=== PATIENT | male | born 1945 | race Caucasian/White ===

== ENCOUNTER → 2023-04-11 09:49 | Outpatient (REF) | payer MEDICARE, OTHER, SELFPAY | LOC: RAD 09:49 | PROVIDERS: ATTENDING PHYSICIAN Internal Medicine Gastroenterology; FAMILY PHYSICIAN Emergency Medicine | DX: R13.19 Other dysphagia (principal) | CPT/HCPCS: 74230; 92611 ==

== ENCOUNTER 2023-05-09 06:14 | Day surgery (SDC) | payer MEDICARE, OTHER, SELFPAY ==
[2023-05-09 07:23] VITALS: BP 146/69
[2023-05-09 08:55] VITALS: BP 116/57
[2023-05-09 09:00] VITALS: BP 124/62
[2023-05-09 09:10] VITALS: BP 134/62
== END 2023-05-09 09:30 | disposition home or self-care (01) ==
LOC: SDS 06:14
PROVIDERS: ATTENDING PHYSICIAN Internal Medicine Gastroenterology
DX: D12.2 Benign neoplasm of ascending colon (principal); K57.30 Diverticulosis of large intestine without perforation or abscess without bleeding; R19.7 Diarrhea, unspecified; K29.50 Unspecified chronic gastritis without bleeding; K31.89 Other diseases of stomach and duodenum; K20.90 Esophagitis, unspecified without bleeding; T18.128A Food in esophagus causing other injury, initial encounter; W44.F3XA Food entering into or through a natural orifice, initial encounter; R13.10 Dysphagia, unspecified; Z85.79 Personal history of other malignant neoplasms of lymphoid, hematopoietic and related tissues
CPT/HCPCS: 45380; 43239; 88305

== ENCOUNTER 2024-06-15 06:29 | Day surgery (SDC) | payer MEDICARE, OTHER, SELFPAY | END 2024-06-15 14:02 | disposition home or self-care (01) | LOC: GI 06:29 | PROVIDERS: ATTENDING PHYSICIAN Internal Medicine Gastroenterology | DX: R19.7 Diarrhea, unspecified (principal); K57.30 Diverticulosis of large intestine without perforation or abscess without bleeding | CPT/HCPCS: 45331; 88305 ==